=== PATIENT | male | born 1960 | race Caucasian/White ===

== ENCOUNTER → 2016-10-07 | Day surgery (SDC) | payer BC ==
[~2016-10-07] MED LIST: ALLEGRA PO; ASPIRIN PO; ASPIRIN81 M1 PO; ASPIRIN81 M2 PO; ATENOLOL PO; COREG PO; COUMADIN PO; DIFLUCAN PO; FENTANYL1 PATCH .7 TOP; FLOMAX0.4 MG PO; FOLIC ACID PO; IBUPROFEN800 MG PO; LIPITOR PO; LIPITOR40 MG PO; LIPITOR80 MG PO; LISINOPRIL PO; LISINOPRIL10 MG PO; LOPID600 MG PO; LORAZEPAM1 MG PO; LORTAB 7.5-5001 TAB PO; LORTAB 7.51 TAB 7.5/ PO; LYRICA PO; MULTI-VITAMIN1 TAB PO; NEURONTIN PO; NORVASC PO; PLAVIX PO; PRILOSEC40 MG PO; PROTONIX PO; THIAMINE HCL100 MG PO; TYLOX 5/500 CAP1 CAP PO; ZANAFLEX PO; [UNRECOGNIZED DRUG - CODE] PO
--- NOTE | ~2016-10-07 | OR ---
Unit #: [id number] #: [id number] Patient: LOS CARY JR [id number] [address] [place], [place] [address] [id number] O MR#: [id number] NAME: LOS CARY JR ROOM: Date of Procedure: 10/07/2016 Admission Date: 10/07/2016 Surgeon: Praveen Mota M.D. : 1960 Attending Physician: Praveen Mota M.D. Primary Care Physician: Cris Winters A.P.R.N. OPERATIVE REPORT PROCEDURES PERFORMED Esophagogastroduodenoscopy with biopsy and colonoscopy to cecum. 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 MEDICATIONS Monitored anesthesia. POSTOPERATIVE FINDINGS 1. 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 Biopsies taken. 2. Mild gastritis. Biopsies taken. 3. Normal duodenum and distal duodenum. 4. Colonoscopy completed to cecum. Anastomosis in the sigmoid colon appears intact. No polyps, masses, or abnormal areas were seen. PLAN Repeat colonoscopy and upper endoscopy in 1 year. DESCRIPTION OF PROCEDURE The patient was explained of the procedure, risks, and benefits along with the risks and benefits of anesthesia. He was brought to the endoscopy room. Propofol anesthesia was given. Bite block was placed. The scope was passed down the mouth into the esophagus, stomach, duodenum, and distal duodenum. Findings as described. Biopsies taken. Gently, the scope was pulled out. He tolerated it well. At this time, he was turned around and repositioned for colonoscopy. Rectal exam was done, which was normal. Colonoscope was lubricated, passed up the rectum, advanced under direct vision all the way to the cecum. Cecum was identified by ileocecal valve and appendiceal orifice. No polyps, masses, or colitis was seen. Anastomosis seen at about 20 cm seems intact. I retroflexed the rectum, small hemorrhoids seen. Gently, the scope was pulled out. He tolerated it well. Dictated by... Praveen Mota M.D. Unit #: [id number] #: [id number] Patient: LOS CARY JR/xander TD: 10/07/2016 23:11 JOB #: [id number] OPERATIVE REPORT Page 1 of 1 X Praveen Mota MD PROCEDURE OPERATIVE NOTE
== END | disposition home or self-care (01) ==
LOC: COPS 08:53
DX: K21.0 Gastro-esophageal reflux disease with esophagitis (principal); I10 Essential (primary) hypertension; E78.00 Pure hypercholesterolemia, unspecified; K21.9 Gastro-esophageal reflux disease without esophagitis; Z98.890 Other specified postprocedural states; Z95.1 Presence of aortocoronary bypass graft; Z79.899 Other long term (current) drug therapy; I25.10 Atherosclerotic heart disease of native coronary artery without angina pectoris; Z98.52 Vasectomy status; Z88.8 Allergy status to other drugs, medicaments and biological substances
CPT/HCPCS: 88305